=== PATIENT | female | born 1950 | race Caucasian/White ===

== ENCOUNTER → 2017-10-21 14:42 | Outpatient (CLI) | payer MEDICARE, SELFPAY ==
--- NOTE | 2017-10-21 14:47 | CT_ITS ---
CT IACs W/O Contrast INDICATION: RT EAR HEARING LOSS, UNABLE TO PUT TUBE IN EAR COMPARISON: None TECHNIQUE: High-resolution axial CT imaging of the internal auditory canals with coronal and sagittal reformatted images. FINDINGS: There is marked thickening of the tympanic membrane on the right, possibly with adjacent fluid. Trace fluid is seen in the middle ear cavity. The ossicles appear anatomically intact. There is fluid along the head of the malleolus . Inner ear structures and semicircular canals appear normal. Internal auditory canal is normal and symmetric to the contralateral side. The mastoid air cells are clear bilaterally. CT/Orb Sella Post Fossa Ear w/o IMPRESSION: Marked thickening of the right tympanic membrane with adjacent fluid, tracking along the head of the malleolus. Inner ear structures and internal auditory canals normal and symmetric. at 1733 Reported and signed by: Rajwinder Puga MD Electronically Signed: Rajwinder Puga MD at 17:31 EDT Tel , Service support ,
== END ==
PROVIDERS: Visit Provider Otolaryngology
DX: H74.11 Adhesive right middle ear disease (principal)
CPT/HCPCS: 70480

== ENCOUNTER → 2019-07-30 16:04 | Outpatient (CLI) | payer MEDICARE, SELFPAY ==
--- NOTE | 2019-07-30 16:07 | EKG12_ITS ---
Test Reason : ARRHYTHMIA Blood Pressure : / mmHG Vent. Rate : 049 BPM Atrial Rate : 049 BPM P-R Int : 114 ms QRS Dur : 086 ms QT Int : 444 ms P-R-T Axes : 023 -25 040 degrees QTc Int : 401 ms Marked sinus bradycardia Abnormal ECG Confirmed by DILAN PAREDES MD ([id number]), editor index ROHINI HEAD ([id number]) on 08/01/2019 9:55:45 AM Referred By: Katia Grider Confirmed By:DILAN PAREDES MD
== END ==
PROVIDERS: Referring Provider Nurse Practitioner Family; Visit Provider Nurse Practitioner Family
DX: I49.9 Cardiac arrhythmia, unspecified (principal)
CPT/HCPCS: 93005

== ENCOUNTER → 2020-03-04 09:22 | Outpatient (CLI) | payer MEDICARE, SELFPAY ==
[2019-09-04 14:29] VITALS: BMI 23.4
--- NOTE | 2020-03-04 09:24 | CDU_ITS ---
Reason For Study: Bruit Rt. Velocities/BP Lt. Velocities/BP Prox CCA 70.8/8.2 cm/sec. Prox CCA 59.6/11.3 cm/sec. Mid CCA 55.2/8.2 cm/sec. Mid CCA 62.9/12.4 cm/sec. Dist CCA 57.8/10.8 cm/sec. Dist CCA 70.6/14.6 cm/sec. Prox ICA 52/10.2 cm/sec. Prox ICA 50.9/10.2 cm/sec. Mid ICA 93.7/20.1 cm/sec. Mid ICA 79.4/21.2 cm/sec. Dist ICA 101.4/17.9 cm/sec. Dist ICA 102.8/20.4 cm/sec. Rt. ICA/CCA = 1.8. Lt. ICA/CCA = 1.6. Prox ECA 66.9/1.7 cm/sec. Prox ECA 61.8/3.6 cm/sec. Rt. Vert. 54.2/10.2 cm/sec. Lt. Vert. 58.6/9.1 cm/sec. Right Extracranial There is homogeneous, smooth atherosclerotic plaque noted in the right common carotid artery. There is heterogeneous, irregular atherosclerotic plaque noted in the right internal carotid artery. There is heterogeneous, irregular atherosclerotic plaque noted in the right external carotid artery. Antegrade flow is noted in the right vertebral artery. Left Extracranial There is intimal thickening but no significant atherosclerotic plaque noted in the left common carotid artery. There is heterogeneous, irregular atherosclerotic plaque noted in the left internal carotid artery. The atherosclerotic plaque causes acoustic shadowing. There is intimal thickening but no significant atherosclerotic plaque noted in the left external carotid artery. Antegrade flow is noted in the left vertebral artery. Procedure Carotid Duplex [id number]. Exam performed in department. Interpretation Summary Irregular calcific plague at the proximal right internal carotid with <50% stenosis <50% stenosis right external carotid Irregular calcific plague at the proximal left internal carotid with shadowing and <50% stenosis <50% stenosis left external carotid Patent, antegrade vertebrals bilaterally Ordering Physician: Triston Bryan Referring Physician: [facility] Performed By: May Morales RVT
--- NOTE | 2020-03-04 09:24 | ECHOD_ITS ---
Reason For Study: MURMUR Procedure This was a 2D Doppler, Color Flow transthoracic echocardiogram. Exam performed in department. Left Ventricle Normal LV size. Left ventricular systolic function is normal. The estimated ejection fraction is 60 %. Stage 2 diastolic dysfunction. No regional wall motion abnormalities noted. Right Ventricle Normal RV size. Normal systolic function. Atria The left atrium is mildly enlarged. Normal right atrium. Mitral Valve Normal mitral valve. Mild (1+) eccentric mitral valve insufficiency. Tricuspid Valve Normal tricuspid valve. Mild (1+) tricuspid valve insufficiency. Pulmonary artery systolic pressure is 25 mmHg. Aortic Valve Trisinus/trileaflet aortic valve. Moderate focal aortic valve calcification. Cannot completely exclude a bicuspid aortic valve. There appears to be a diastolic flow emanating from the base of the aorta into the left atrium. Mild-Moderate (1-2+) eccentric aortic valve insufficiency. Pulmonic Valve Normal pulmonic valve. Great Vessels Normal aortic root. The pulmonary artery is normal size. Normal inferior vena cava. Pericardium/Pleural No pericardial effusion. MMode/2D Measurements & Calculations LVIDd: 5.1 cm IVSd: 0.85 cm LVOT diam: 2.0 cm LVIDs: 3.4 cm LVPWd: 0.98 cm LVOT area: 3.1 cm2 RVDd: 3.2 cm FS: 33.4 % Ao root diam: 2.8 cm LAV(MOD-bp): 63.3 ml Aortic Valve Planimetry: 0.76 cm2 LAV(MOD-bp) Indexed: 40.4 ml/m2 LAV(MOD-sp2): 59.5 ml LAV(MOD-sp4): 67.2 ml LA dimension(2D): 4.0 cm LA A4 area: 21.1 cm2 RA A4 area: 13.3 cm2 Time Measurements MV dec time: 0.14 sec Doppler Measurements & Calculations MV E max chencho: 59.3 cm/sec Lat Peak E' Chencho: 7.9 cm/sec Med Peak E' Chencho: 4.3 cm/sec MV A max chencho: 56.7 cm/sec E/E' lat: 7.5 E/E' med: 13.9 MV E/A: 1.0 Ao V2 max: 424.7 cm/sec AI max chencho: 363.4 cm/sec LV V1 max: 83.6 cm/sec Ao max P.3 mmHg AI max P.9 mmHg LV V1 max P.8 mmHg Ao V2 mean: 323.1 cm/sec AI dec slope: 133.6 cm/sec2 LV V1 mean P.6 mmHg Ao mean P.2 mmHg AI P1/2t: 797.0 msec LV V1 mean: 61.0 cm/sec Ao V2 VTI: 123.0 cm LV V1 VTI: 23.8 cm TYLOR(I,D): 0.61 cm2 TYLOR(V,D): 0.62 cm2 SV(LVOT): 74.9 ml PA V2 max: 104.8 cm/sec PI end-d chencho: 60.9 cm/sec TR max chencho: 232.9 cm/sec TR max P.7 mmHg Interpretation Summary Normal LV size. Left ventricular systolic function is normal. The estimated ejection fraction is 60 %. Stage 2 diastolic dysfunction. Moderate focal aortic valve calcification. Mild-Moderate (1-2+) eccentric aortic valve insufficiency. Cannot completely exclude a bicuspid aortic valve. There appears to be a diastolic flow emanating from the base of the aorta into the left atrium. Pulmonary artery systolic pressure is 25 mmHg. Ordering Physician: Triston Bryan Referring Physician: ROBBIE SAHU [facility] Performed By: Ciara Stephens, SEEMA, RVT
== END ==
PROVIDERS: Referring Provider Internal Medicine Cardiovascular Disease; Visit Provider Internal Medicine Cardiovascular Disease
DX: R00.2 Palpitations (principal); R09.89 Other specified symptoms and signs involving the circulatory and respiratory systems; E03.9 Hypothyroidism, unspecified
CPT/HCPCS: 93306; 93880

== ENCOUNTER 2020-03-24 09:27 | Day surgery (SDC) | payer MEDICARE, SELFPAY ==
[2019-09-04 14:29] VITALS: BMI 23.4
[2020-03-19 15:58] VITALS: BMI 23.4
--- NOTE | 2020-03-19 17:00 | RAD_ITS ---
STUDY: X-RAY CHEST REASON FOR EXAM: Female, 69 years old. DYSPNEA AND PALPITATIONS TECHNIQUE: Single AP portable view of the chest. COMPARISON: None. FINDINGS: There is hyperinflation of the lungs consistent with chronic obstructive lung disease (COPD). Possible 7 mm nodule in the right lung base. Recommend further evaluation with CT scan. No infiltrates. No effusions. There is no demonstrated pleural abnormality. Normal size heart. Normal mediastinum and cheri. Normal visualized pulmonary arteries. Normal visualized aortic arch and descending thoracic aorta. Normal visualized thoracic spine. Normal visualized ribs, clavicles, and shoulders. There is no demonstrated abnormality of the visualized soft tissue structures of the upper abdomen. RAD/Chest PA and Lateral IMPRESSION: Question of a small nodule in the right lung base, CT scan recommended. There are findings consistent with COPD. Electronically Signed: Adrian Reyna MD at 20:01 EDT , Service support ,
[2020-03-19 17:19] LABS: Absolute Lymphocyte Count 1.47 X10^3/uL (0.83-4.51); Absolute Neutrophil Count 2.8 X10^3/uL (2.0-7.7); Basophil# 0.02 X10^3/uL; Basophil% 0.4 % (0-1); Eosinophil# 0.02 X10^3/uL; Eosinophils% 0.4 % (0-5); Hematocrit 39.6 % (37-47); Hemoglobin 12.8 g/dL (12.0-15.0); Lymphocyte # 1.47 X10^3/ul (4.0); Lymphocyte % 31.8 % (19-41); Mean Corp Hgb Conc 32.3 g/dL (32-36); Mean Corpuscular Hgb 32.4 pg (27.0-32.0); Mean Corpuscular Volume 100.3 fL (81-99); Mean Platelet Vol. 8.7 fl (6.2-12.0); Monocyte# 0.35 X10^3/uL; Monocyte% 7.6 % (0-10); NRBC Flagged by Analyzer 0 % (0-5); Neutrophil # 2.75 X10^3/uL (2.7-7.7); Neutrophil % 59.6 % (47-70); Platelet Count 186 K/mm3 (150-450); RBC Distribution Width CV 14.6 % (11.6-14.6); RBC Distribution Width SD 54.8 fl (35.1-43.9); Red Blood Count 3.95 M/mm3 (4.2-5.4); White Blood Count 4.6 K/mm3 (4.4-11.0)
[2020-03-19 17:35] LABS: Anion Gap 1 (5-15); BUN 18 mg/dL (7-18); BUN/Creat Ratio 12.2 RATIO (10-20); Calcium,Total 9.3 mg/dL (8.5-10.1); Chloride 108 mmol/L (98-107); Creatinine, Serum 1.47 mg/dL (0.55-1.02); EST Glomerular Filtration Rate 37 mL/min (>60); Est Glom Filt Rate - Afr Amer 45 mL/min (>60); Glucose 81 mg/dL (74-106); Potassium 4.7 mmol/L (3.5-5.1); Sodium Level 139 mmol/L (136-145)
[2020-03-21 08:24] VITALS: BMI 22.8
--- NOTE | 2020-03-24 08:10 | HP_ITS ---
HPI HPI History of Present Illness Surgical H&P: Yes Details: Mrs Egan is a very pleasant 69-year-old female with a history of hypertension, hypercholesterolemia, reflux disease, restrictive lung disease, multiple thyroid nodules, GERD, referred to our office for palpitations and positional lightheadedness. She was previously seen by the previous architect marine. An echocardiogram was ordered. This was evaluated by me. She has been having some episodes of dizziness when she gets up quickly from the seated or recumbent position. She denies any chest pain per se. Her physical exam demonstrates clear lung mancia regular rate and rhythm 3/6 systolic ejection murmur noted at the left sternal border radiating to the carotids. Her echocardiogram which was performed demonstrated preserved ejection fraction of 60% a trileaflet aortic valve with focal calcification 1-2+ eccentric aortic regurgitation and a peak gradient across the aortic valve of 72 mmHg and a mean gradient of 45 mmHg. There was a diastolic jet also noted which was eccentric possibly the AI. Intake Vital Signs 03/19/20 BMI 23.4 03/19/20 Height 5 ft 1 in 03/19/20 Weight: 121 lb 03/19/20 BMI 22.8 03/19/20 BP 132/61 H 03/19/20 Respiration 16 03/19/20 Pulse 68 03/19/20 Pulse Oximetry (%) 98 Intake Visit Reasons: severe /BAV (transfer from [facility]) Allergies No Known Allergies Allergy (Unverified 03/19/20 15:54) Medications aspirin 81 mg tablet,delayed release 81 mg PO DAILY 09/03/19 [History Confirmed 03/19/20] ergocalciferol (vitamin D2) 1,250 mcg (50,000 unit) capsule 1,250 mcg PO QWEEK 09/04/19 [History Confirmed 03/19/20] pravastatin 40 mg tablet 40 mg PO QHS 09/04/19 [History Confirmed 03/19/20] levothyroxine 75 mcg tablet 75 mcg PO DAILY #30 tab 03/19/20 [Rx Confirmed 03/19/20] lisinopril 20 mg tablet 20 mg PO DAILY #30 tab 03/19/20 [Rx Confirmed 03/19/20] PFSH Medical History Palpitations (Chronic) Bradycardia (Chronic) Bicuspid aortic valve (Chronic) Nonrheumatic aortic (valve) stenosis with insufficiency (Chronic) Essential (primary) hypertension (Chronic) Hyperlipidemia (Chronic) Decreased carotid pulse (Chronic) Hypothyroidism (Chronic) Surgical History History of D&C (Chronic) History of appendectomy (Chronic) History of benign breast biopsy (Chronic 2007) History of hysterectomy (Chronic 2000) History of wisdom tooth extraction (Chronic) Family History Mother CAD (coronary artery disease) Arthritis Father CAD (coronary artery disease) Hypertension CHF (congestive heart failure) Arthritis Social History (Updated 03/19/20 @ 16:[address] Jude Burnett MD) Smoking Status: Never smoker ROS Const Const: Negative for fatigue, weakness, headache(s), frequent falls, difficulty sleeping or excessive sweating Eyes Eyes: Negative for loss of peripheral vision, transient loss of vision, blurry vision, double vision or tunnel vision ENT ENT: Negative for headache(s), dizziness, Nosebleed/epistaxis or balance problems Cardio Chest Pain: No Palpitations: No Edema: None Muscle aches with walking: None Resp Respiratory: Negative for SOB with activity, SOB at rest, SOB orthopnea\SOB lying down, Cough or paroxysmal nocturnal dyspnea GI GI: Negative nausea, vomiting, heartburn or black,tarry stools : Negative for hematuria Musc Musc: Negative for muscle aches/ myalgia, muscle weakness, joint pain or balance problems Skin Skin: Negative non-healing lesions, rash or unusual bruising Neuro Neuro: Positive for lightheadedness (Has episodes of lightheadedness with exertion and bending over); negative for dizziness, near syncope, syncope, orthostatic symptoms, frequent falls, headache(s), weakness, blurry vision, double vision or lack of coordination Jaleel Hematologic/Lymphatic: Negative for easy bleeding or easy bruising Endo Endo: Negative for fatigue, excessive sweating or increased thirst/drinking Psych Psych: Negative for anxiety or depression Allergy Allergy/Immunology: Negative for hives, Negative for rash Cardiology Exam Const Appearance: cooperative, healthy appearing, no acute distress, well developed and well groomed Nutritional Appearance: average body habitus and well nourished Orientation: alert, awake and oriented x3 Head Head: normal to inspection, normocephalic and atraumatic Ears: hearing grossly normal bilaterally and external ears normal Nose: external nose normal, nares normal, nasal mucous membranes and turbinates normal, septum normal, no nasal discharge Face and Sinus: face symmetric Mouth: oral mucosae normal, tongue normal, oropharynx normal and moist mucous membranes Teeth and gingiva: dentition normal Throat: posterior oropharynx normal, tonsils normal and uvula midline Eyes General: appearance normal, both eyes and all related structures Eyelids: eyelids normal Conjunctivae: conjunctivae normal Pupils: PERRL, normal by confrontation and accommodation normal EOM: EOM intact bilaterally Neck Neck: normal visual inspection, trachea midline and no JVD JVD: +5 Carotids: normal carotid upstroke and bounding pulses Chest Chest inspection: normal inspection of the chest, symmetric chest movement and normal respiratory effort Auscultation: Bilateral: Clear to Auscultation Cardio Palpation: normal PMI Rate: regular rate Rhythm: regular rhythm Heart sounds: S1 normal, S2 normal and normal, physiologic split S2; negative rub, gallop or murmur Murmur: Grade 3/6, early systolic, LLSB and LVOT GI GI: normal to inspection, soft, no hepatosplenomegaly and bowel sounds present Neuro General: alert, awake, oriented x3, gait normal, moves all extremities and no focal sensory deficit Skin Skin: no rashes or lesions noted Extremities Pulses: Normal: Right Femoral Pulse, Left Femoral Pulse, Right Dorsalis Pedis Pulse, Left Dorsalis Pedis Pulse, Right Posterior Tibial Pulse, Left Posterior Tibial Pulse, Right Radial Pulse, Left Radial Pulse Lower Extremity Edema: None: Bilateral Musculoskel Musculoskeletal: No joint tenderness Psych Psychological: normal affect Assessment & Plan 1. Nonrheumatic aortic (valve) stenosis with insufficiency I35.2 Plan She appears to have significant aortic stenosis and mild to moderate aortic regurgitation. I would like to obtain a GIRMA to further clarify the hemodynamics at the base of the aorta. It is possibly an eccentric aortic regurgitant jet unable to be sure that there is nothing going into the left atrium. Due to the aortic valve area she should also be considered for a left heart catheterization. This will be with a view to considering a TAVR procedure. I discussed this with the patient and her they understand and agree to proceed. Orders Orders: 12 Lead EKG performed by [facility] Today Left Heart Cath 03/24/20 Basic Metabolic Profile (BMP) 03/14/20 CBC W/Diff, Automated 03/14/20 CORONAVIRUS 19, [facility] 03/14/20 Chest PA and Lateral 03/14/20 Echo Transesophageal (GIRMA) 03/24/20 2. Essential (primary) hypertension I10 Plan She does have a history of hypertension and will continue on the current lisinopril therapy. No other changes will be made. Orders Orders: 12 Lead EKG performed by [facility] Today Left Heart Cath 03/24/20 Basic Metabolic Profile (BMP) 03/14/20 CBC W/Diff, Automated 03/14/20 CORONAVIRUS 19, [facility] 03/14/20 Chest PA and Lateral 03/14/20 Echo Transesophageal (GIRMA) 03/24/20 Plan Detail Other Orders Orders: 12 Lead EKG performed by [facility] Today E78.5, Q23.1, R00.1, R00.2, R42 Left Heart Cath 03/24/20 E78.5, Q23.1, R00.1, R00.2, R93.1 Basic Metabolic Profile (BMP) 03/14/20 E78.5, Q23.1, R00.1, R00.2, R93.1 CBC W/Diff, Automated 03/14/20 E78.5, Q23.1, R00.1, R00.2, R93.1 CORONAVIRUS 19, [facility] 03/14/20 E78.5, Q23.1, R00.1, R00.2, R93.1 Chest PA and Lateral 03/14/20 E78.5, Q23.1, R00.1, R00.2, R93.1 Echo Transesophageal (GIRMA) 03/24/20 E78.5, Q23.1, R00.1, R00.2 Other Medications New: lisinopril 20 mg PO DAILY 30 tabs 11RF levothyroxine 75 mcg PO DAILY 30 tabs 11RF 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
--- NOTE | 2020-03-24 09:31 | ECHOTEE_ITS ---
Version 2 Reason For Study: Aortic Stenosis Medication GIRMA probe 6VT-D (SN [id number]) passed with minimal difficulty. No complications were noted. Cetacaine Topical [place] given X3 orally. Versed 3 mg given slow IVP. Fentanyl 50 mcg given slow IVP. Performed a rapid injection of agitated mix of 9 cc saline and 1cc air to assess for atrial septal defect. Left Ventricle Normal LV size. Left ventricular systolic function is normal. The estimated ejection fraction is 60 %. No regional wall motion abnormalities noted. Right Ventricle Normal RV size. Normal systolic function. Atria Bubble contrast study negative for right to left interatrial shunt. The left atrium is mildly enlarged. Normal right atrium. Aortic Valve Trisinus/trileaflet aortic valve. Moderate focal aortic valve calcification. Moderately severe. Mild-Moderate (1-2+) aortic valve insufficiency. Pulmonic Valve Normal pulmonic valve. Mild (1+) pulmonic valve insufficiency. Vessels Normal aortic root. The pulmonary artery is normal size. Pericardium No pericardial effusion. Interpretation Summary Normal LV size. Left ventricular systolic function is normal. The estimated ejection fraction is 60 %. Mild (1+) pulmonic valve insufficiency. Moderate focal aortic valve calcification. Mild-Moderate (1-2+) aortic valve insufficiency. Moderately severe aortic stenosis Ordering Physician: Jude Burnett Referring Physician: Jude Burnett Performed By: Francheska Calderón RDCS
--- NOTE | 2020-03-24 12:33 | CL.D_ITS ---
Patient Name: NICO HARLEY Study Date: 03/24/2020 Performing: Jude Burnett MD Ht: 61.02 inches 155 cm : 1950 Wt: 121.25 lbs 55 kg Age: 69 Gender: female BSA: 1.53 PROCEDURE(S) PERFORMED [id number] ROOT ANGIO WITH HEART CATH CLINICAL PROFILE AND INDICATIONS Indications: Valvular Disease Heart Failure: None Stress/Imaging Stress/Image Study Performed: No CAD Presentations: Symptom unlikely to be ischemic. CONCLUSIONS No significant CAD. RECOMMENDATIONS Moderately severe aortic stenosis: Mild to moderate aortic regurgitation: Aortic valve calcification: Preserved left ventricular ejection fraction. Would recommend an evaluation for a TAVR approach. DESCRIPTION OF PROCEDURE The patient arrived to the procedure lab. The risks and benefits of the procedure as well as a full d escription of our services here and current unavailability of surgical backup were fully explained to the patient and/or their significant other prior to the catheterization. The Timeout was completed, verifying the correct patient and procedure. The patient's procedural site was prepped and draped in the usual fashion. Local anesthetic was given subcutaneously to right radial region with Lidocaine 2% . Using a modified Seldinger technique, arterial access was obtained via the right radial artery, a 6 Fr sheath was inserted. Left Coronary Artery selective angiography was performed in multiple views u sing a 5 Fr. 4.0 [place] catheter. Right Coronary Artery selective angiography was then performed in mu ltiple views using a 5 Fr. 4.0 [place] catheter. Ascending (root) aorta selective angiography was then performed in single view. Ascending (root) aorta selective angiography was then performed in single view.The arterial sheath was pulled and a TR Band was applied for hemostasis 12cc air inser nhi CORONARY ANGIOGRAPHY DOMINANCE: Right Dominant LEFT HEART ASSESSMENT Left Ventricular Ejection Fraction: by Echo 60 % Normal LV wall motion Normal Left Ventricular systolic function LEFT MAIN: Angiographically normal LEFT ANTERIOR DESCENDING ARTERY: Angiographically normal CIRCUMFLEX ARTERY: Angiographically normal RIGHT CORONARY ARTERY: Angiographically normal VALVE FINDINGS: Aortic Valve Stenosis - severe Aortic Valve Insufficiency: Grade 2 AORTIC ROOT: Angiographically normal COMPLICATIONS No Complications PROCEDURE MEDICATIONS Versed 1 mg IV Oxygen: 2 L/min via nasal cannula Heparin diluted in 23cc Heparinized saline. Patient given 10cc IA of this solution. 03/24/2020 12:04: 35 IV Bolus: .9 NaCl 350 ml total 03/24/2020 12:17:57 SUMMARY OF HEMODYNAMIC DATA Time AIR REST ECG 09:59:33 AO 140/76 (103) SA 12:07:44 Signed By Jude Burnett MD On 03/24/2020 12:32:52 Jude Burnett MD
== END 2020-03-24 14:00 | disposition home or self-care (01) ==
PROVIDERS: Referring Provider Internal Medicine Cardiovascular Disease; Visit Provider Internal Medicine Cardiovascular Disease
DX: I35.2 Nonrheumatic aortic (valve) stenosis with insufficiency (principal); I10 Essential (primary) hypertension; E78.00 Pure hypercholesterolemia, unspecified; Z79.82 Long term (current) use of aspirin; R06.00 Dyspnea, unspecified; J44.9 Chronic obstructive pulmonary disease, unspecified; I37.1 Nonrheumatic pulmonary valve insufficiency; R93.1 Abnormal findings on diagnostic imaging of heart and coronary circulation
CPT/HCPCS: 36415; 71046; 80048; 85025; 87635; 93312; 93320; 93325; 93458; 93567; 99152; C9803; J7040; Q9967; A4216; C1769; C1894; U0003

== ENCOUNTER → 2020-06-24 15:28 | Outpatient (CLI) | payer MEDICARE, SELFPAY ==
[2020-03-21 08:24] VITALS: BMI 22.8
[2020-06-24 17:41] LABS: Anion Gap 5 (5-15); BUN 13 mg/dL (7-18); BUN/Creat Ratio 14.3 RATIO (10-20); Calcium,Total 8.9 mg/dL (8.5-10.1); Chloride 108 mmol/L (98-107); Creatinine, Serum 0.91 mg/dL (0.55-1.02); EST Glomerular Filtration Rate 65 mL/min (>60); Est Glom Filt Rate - Afr Amer 78 mL/min (>60); Glucose 75 mg/dL (74-106); Potassium 4.6 mmol/L (3.5-5.1); Sodium Level 143 mmol/L (136-145)
== END ==
DX: I35.0 Nonrheumatic aortic (valve) stenosis (principal)
CPT/HCPCS: 36415; 80048

== ENCOUNTER → 2020-12-25 15:50 | Outpatient (CLI) | payer MEDICARE, SELFPAY ==
[2020-12-25 15:02] VITALS: BMI 20.5
[2020-12-25 17:48] LABS: Anion Gap 7 (5-15); BUN 12 mg/dL (7-18); BUN/Creat Ratio 12.2 RATIO (10-20); Calcium,Total 8.6 mg/dL (8.5-10.1); Chloride 105 mmol/L (98-107); Creatinine, Serum 0.98 mg/dL (0.55-1.02); EST Glomerular Filtration Rate 59 mL/min (>60); Est Glom Filt Rate - Afr Amer 72 mL/min (>60); Glucose 85 mg/dL (74-106); Potassium 4.2 mmol/L (3.5-5.1); Sodium Level 141 mmol/L (136-145); Thyroid Stim Hormone (TSH) 1.43 uIU/mL (0.358-3.74)
== END ==
PROVIDERS: Referring Provider Internal Medicine Cardiovascular Disease; Visit Provider Internal Medicine Cardiovascular Disease
DX: R00.2 Palpitations (principal); Z95.2 Presence of prosthetic heart valve
CPT/HCPCS: 36415; 80048; 84443

== ENCOUNTER → 2021-04-11 09:17 | Outpatient (CLI) | payer MEDICARE, SELFPAY ==
[2021-04-11 09:56] LABS: Absolute Lymphocyte Count 0.87 X10^3/uL (0.83-4.51); Absolute Neutrophil Count 1.8 X10^3/uL (2.0-7.7); Basophil# 0.01 X10^3/uL; Basophil% 0.3 % (0-1); Eosinophil# 0.03 X10^3/uL; Hematocrit 40.8 % (37-47); Hemoglobin 12.8 g/dL (12.0-15.0); Lymphocyte # 0.87 X10^3/ul (0.83-4.51); Lymphocyte % 29.8 % (19-41); Mean Corp Hgb Conc 31.4 g/dL (32-36); Mean Corpuscular Hgb 31.2 pg (27.0-32.0); Mean Corpuscular Volume 99.5 fL (81-99); Mean Platelet Vol. 8.5 fl (6.2-12.0); Monocyte# 0.24 X10^3/uL; Monocyte% 8.2 % (0-10); NRBC Flagged by Analyzer 0 % (0-5); Neutrophil # 1.76 X10^3/uL (2.7-7.7); Neutrophil % 60.4 % (47-70); Platelet Count 181 K/mm3 (150-450); RBC Distribution Width CV 15.8 % (11.6-14.6); RBC Distribution Width SD 58.1 fl (35.1-43.9); White Blood Count 2.9 K/mm3 (4.4-11.0)
[2021-04-11 10:10] LABS: Hemoglobin A1c 5.2 % (3.8-5.6)
[2021-04-11 10:38] LABS: ALB/GLOB Ratio 0.8 RATIO (0.9-2.4); AST(SGOT) 19 U/L (15-37); Alanine Aminotransfer ALT/SGPT 16 U/L (13-56); Albumin, Serum 3.2 g/dL (3.2-5.0); Alkaline Phosphatase 81 U/L (45-117); Anion Gap 5 (5-15); BUN 16 mg/dL (7-18); BUN/Creat Ratio 15.8 RATIO (10-20); Calcium,Total 8.9 mg/dL (8.5-10.1); Chloride 106 mmol/L (98-107); Cholesterol 242 mg/dL (200); Creatinine, Serum 1.01 mg/dL (0.55-1.02); EST Glomerular Filtration Rate 57 mL/min (>60); Est Glom Filt Rate - Afr Amer 69 mL/min (>60); Globulin 4.1 g/dL (2.2-4.2); Glucose 91 mg/dL (74-106); High Density Lipoprotein 105 mg/dL; Potassium 4.5 mmol/L (3.5-5.1); Protein, Total 7.3 g/dL (6.4-8.2); Sodium Level 140 mmol/L (136-145); Thyroid Stim Hormone (TSH) 2.51 uIU/mL (0.358-3.74); Triglycerides 64 mg/dL; Very Low Density Lipoprotein 13 mg/dL (5-40)
[2021-04-13 13:19] LABS: Vitamin D 1,25-Dihydroxy 38.5 pg/mL (19.9-79.3)
== END ==
PROVIDERS: Referring Provider Nurse Practitioner Adult Health; Visit Provider Nurse Practitioner Adult Health
DX: I10 Essential (primary) hypertension (principal); E55.9 Vitamin D deficiency, unspecified; Z83.3 Family history of diabetes mellitus; E78.5 Hyperlipidemia, unspecified
CPT/HCPCS: 36415; 80053; 80061; 82652; 83036; 84443; 85025

== ENCOUNTER → 2021-12-01 | Outpatient (CLI) | payer MEDICARE, SELFPAY ==
--- NOTE | 2021-12-01 11:48 | BI_ITS ---
MAMMOGRAPHY - BILATERAL SCREENING REASON FOR EXAM: Female, 71 years old. Routine annual screening examination. PERTINENT HISTORY: Non-contributory. TECHNIQUE: Digital bilateral breast cely (3D mammographic acquisition) in the CC and MLO projections. 2-D mediolateral oblique (MLO) and craniocaudad (CC) views of both breasts were obtained. CAD: Full Field Digital Mammography with Computer Added Detection was performed. COMPARISON: Comparison is made with prior study dated 05/18/2017 and 09/05/2012. FINDINGS: Breast Composition: The breasts are heterogeneously dense, which may obscure small masses. There are no dominant masses or suspicious calcifications. No other significant abnormalities are identified. There has been no significant change since the prior study. BI/SCRN MAMM (CAD)W/CELY BILAT IMPRESSION: Stable bilateral screening mammogram. Yearly follow-up mammogram recommended. (A) ASSESSMENT CATEGORY: BIRADS Category 1: Negative. A letter regarding these results will be sent to the patient by the facility within 30 days. Approximately 10% of breast cancers are not detected by mammography. A normal mammogram should not delay biopsy of a clinically suspicious abnormality. [id number] Electronically Signed: Pedro Pacheco MD at 12:39 EDT ,
== END | disposition home or self-care (01) ==
LOC: OPBI 11:47
PROVIDERS: Referring Provider Internal Medicine Hematology & Oncology; Visit Provider Internal Medicine Hematology & Oncology
DX: Z12.31 Encounter for screening mammogram for malignant neoplasm of breast (principal)
CPT/HCPCS: 77063; 77067

== ENCOUNTER → 2022-03-15 | Outpatient (CLI) | payer MEDICARE, SELFPAY ==
[2022-03-15 15:24] LABS: Absolute Lymphocyte Count 1.45 X10^3/uL (0.83-4.51); Absolute Neutrophil Count 2.4 X10^3/uL (2.0-7.7); Basophil# 0.02 X10^3/uL; Basophil% 0.5 % (0-1); Eosinophil# 0.02 X10^3/uL; Eosinophils% 0.5 % (0-5); Hematocrit 38.3 % (37-47); Hemoglobin 12.8 g/dL (12.0-15.0); Lymphocyte # 1.45 X10^3/ul (0.83-4.51); Lymphocyte % 34.3 % (19-41); Mean Corp Hgb Conc 33.4 g/dL (32-36); Mean Corpuscular Hgb 32.7 pg (27.0-32.0); Mean Platelet Vol. 8.8 fl (6.2-12.0); Monocyte# 0.35 X10^3/uL; Monocyte% 8.3 % (0-10); NRBC Flagged by Analyzer 0 % (0-5); Neutrophil # 2.39 X10^3/uL (2.7-7.7); Neutrophil % 56.4 % (47-70); Platelet Count 168 K/mm3 (150-450); RBC Distribution Width CV 14.8 % (11.6-14.6); RBC Distribution Width SD 53.3 fl (35.1-43.9); Red Blood Count 3.91 M/mm3 (4.2-5.4); White Blood Count 4.2 K/mm3 (4.4-11.0)
[2022-03-15 15:52] LABS: Microalbumin,Random Urine 33.7 mg/L (NO RANGE EST.); Microalbumin:Creatinine Ratio 12.4 mg/g CRE (<30 mg/g CRE)
[2022-03-15 16:25] LABS: ALB/GLOB Ratio 0.8 RATIO (0.9-2.4); AST(SGOT) 22 U/L (15-37); Alanine Aminotransfer ALT/SGPT 18 U/L (13-56); Albumin, Serum 3.2 g/dL (3.2-5.0); Alkaline Phosphatase 80 U/L (45-117); Anion Gap 5 (5-15); BUN 17 mg/dL (7-18); Calcium,Total 8.7 mg/dL (8.5-10.1); Chloride 108 mmol/L (98-107); Creatinine, Serum 1.54 mg/dL (0.55-1.02); EST Glomerular Filtration Rate 35 mL/min (>60); Est Glom Filt Rate - Afr Amer 42 mL/min (>60); Globulin 4.2 g/dL (2.2-4.2); Glucose 83 mg/dL (74-106); Potassium 4.6 mmol/L (3.5-5.1); Protein, Total 7.4 g/dL (6.4-8.2); Sodium Level 142 mmol/L (136-145); T4 Free Direct 1.13 ng/dL (0.76-1.46); Thyroid Stim Hormone (TSH) 2.62 uIU/mL (0.358-3.74)
== END | disposition home or self-care (01) ==
PROVIDERS: Visit Provider Family Medicine
DX: I10 Essential (primary) hypertension (principal); E03.9 Hypothyroidism, unspecified; D72.819 Decreased white blood cell count, unspecified
CPT/HCPCS: 36415; 80053; 82043; 82570; 84439; 84443; 85025

== ENCOUNTER → 2022-12-23 | Outpatient (CLI) | payer MEDICARE, SELFPAY ==
--- NOTE | 2022-12-23 12:16 | BI_ITS ---
MAMMOGRAPHY - BILATERAL SCREENING REASON FOR EXAM: Female, 72 years old. Routine annual screening examination. PERTINENT HISTORY: Non-contributory. TECHNIQUE: Digital bilateral breast cely (3D mammographic acquisition) in the CC and MLO projections. 2-D mediolateral oblique (MLO) and craniocaudad (CC) views of both breasts were obtained. CAD: Full Field Digital Mammography with Computer Added Detection was performed. COMPARISON: Comparison is made with prior study dated December 01, 2021 and May 18, 2017. FINDINGS: Breast Composition: The breasts are extremely dense, which lowers the sensitivity of mammography. There are no dominant masses or suspicious calcifications. No other significant abnormalities are identified. There has been no significant change since the prior study. BI/SCRN MAMM (CAD)W/CELY BILAT IMPRESSION: Stable bilateral screening mammogram. Yearly follow-up mammogram recommended. (A) ASSESSMENT CATEGORY: BIRADS Category 1: Negative. A letter regarding these results will be sent to the patient by the facility within 30 days. Approximately 10% of breast cancers are not detected by mammography. A normal mammogram should not delay biopsy of a clinically suspicious abnormality. [id number] Electronically Signed: Pedro Pacheco MD at 12:59 EDT ,
== END | disposition home or self-care (01) ==
LOC: OPBI 12:13
PROVIDERS: Referring Provider Nurse Practitioner Women's Health; Visit Provider Nurse Practitioner Women's Health
DX: Z12.31 Encounter for screening mammogram for malignant neoplasm of breast (principal)
CPT/HCPCS: 77063; 77067

== ENCOUNTER → 2023-04-01 | Outpatient (CLI) | payer MEDICARE, SELFPAY ==
[2023-04-01 09:24] LABS: Absolute Lymphocyte Count 1.18 X10^3/uL (0.83-4.51); Basophil# 0.02 X10^3/uL; Basophil% 0.6 % (0-1); Eosinophil# 0.06 X10^3/uL; Eosinophils% 1.7 % (0-5); Hematocrit 39.2 % (37-47); Hemoglobin 12.4 g/dL (12.0-15.0); Lymphocyte # 1.18 X10^3/ul (0.83-4.51); Lymphocyte % 32.6 % (19-41); Mean Corp Hgb Conc 31.6 g/dL (32-36); Mean Corpuscular Hgb 31.4 pg (27.0-32.0); Mean Corpuscular Volume 99.2 fL (81-99); Mean Platelet Vol. 8.8 fl (6.2-12.0); Monocyte# 0.32 X10^3/uL; Monocyte% 8.8 % (0-10); NRBC Flagged by Analyzer 0 % (0-5); Neutrophil # 2.03 X10^3/uL (2.7-7.7); Platelet Count 132 K/mm3 (150-450); RBC Distribution Width CV 14.4 % (11.6-14.6); RBC Distribution Width SD 52.6 fl (35.1-43.9); Red Blood Count 3.95 M/mm3 (4.2-5.4); White Blood Count 3.6 K/mm3 (4.4-11.0)
[2023-04-01 09:59] LABS: ALB/GLOB Ratio 0.8 RATIO (0.9-2.4); AST(SGOT) 15 U/L (15-37); Alanine Aminotransfer ALT/SGPT 16 U/L (13-56); Albumin, Serum 3.1 g/dL (3.2-5.0); Alkaline Phosphatase 82 U/L (45-117); Anion Gap 2 (5-15); BUN 14 mg/dL (7-18); BUN/Creat Ratio 12.7 RATIO (10-20); Calcium,Total 8.8 mg/dL (8.5-10.1); Chloride 108 mmol/L (98-107); Cholesterol 238 mg/dL (200); EST Glomerular Filtration Rate 52 mL/min (>60); Est Glom Filt Rate - Afr Amer 62 mL/min (>60); Globulin 3.8 g/dL (2.2-4.2); Glucose 88 mg/dL (74-106); High Density Lipoprotein 101 mg/dL; Potassium 4.1 mmol/L (3.5-5.1); Protein, Total 6.9 g/dL (6.4-8.2); Sodium Level 140 mmol/L (136-145); T4 Free Direct 1.04 ng/dL (0.76-1.46); Triglycerides 80 mg/dL; Very Low Density Lipoprotein 16 mg/dL (5-40)
== END | disposition home or self-care (01) ==
PROVIDERS: Referring Provider Nurse Practitioner Family; Visit Provider Nurse Practitioner Family
DX: D72.819 Decreased white blood cell count, unspecified (principal); E03.9 Hypothyroidism, unspecified; I10 Essential (primary) hypertension; E78.5 Hyperlipidemia, unspecified
CPT/HCPCS: 36415; 80053; 80061; 84439; 84443; 85025

== ENCOUNTER → 2023-11-16 | Outpatient (CLI) | payer MEDICARE, SELFPAY ==
[2023-11-16 09:46] LABS: Absolute Lymphocyte Count 0.96 X10^3/uL (0.83-4.51); Absolute Neutrophil Count 1.8 X10^3/uL (2.0-7.7); Basophil# 0.02 X10^3/uL; Basophil% 0.6 % (0-1); Eosinophil# 0.06 X10^3/uL; Eosinophils% 1.9 % (0-5); Hematocrit 39.9 % (37-47); Hemoglobin 12.8 g/dL (12.0-15.0); Lymphocyte # 0.96 X10^3/ul (0.83-4.51); Lymphocyte % 29.7 % (19-41); Mean Corp Hgb Conc 32.1 g/dL (32-36); Mean Corpuscular Hgb 31.5 pg (27.0-32.0); Mean Corpuscular Volume 98.3 fL (81-99); Mean Platelet Vol. 8.5 fl (6.2-12.0); Monocyte# 0.35 X10^3/uL; Monocyte% 10.8 % (0-10); NRBC Flagged by Analyzer 0 % (0-5); Neutrophil # 1.83 X10^3/uL (2.7-7.7); Neutrophil % 56.7 % (47-70); Platelet Count 134 K/mm3 (150-450); RBC Distribution Width CV 14.8 % (11.6-14.6); RBC Distribution Width SD 53.7 fl (35.1-43.9); Red Blood Count 4.06 M/mm3 (4.2-5.4); White Blood Count 3.2 K/mm3 (4.4-11.0)
[2023-11-16 10:24] LABS: ALB/GLOB Ratio 0.8 RATIO (0.9-2.4); AST(SGOT) 17 U/L (15-37); Alanine Aminotransfer ALT/SGPT 14 U/L (13-56); Albumin, Serum 3.2 g/dL (3.2-5.0); Alkaline Phosphatase 76 U/L (45-117); Anion Gap 4 (5-15); BUN 16 mg/dL (7-18); BUN/Creat Ratio 13.3 RATIO (10-20); Calcium,Total 8.9 mg/dL (8.5-10.1); Chloride 108 mmol/L (98-107); Cholesterol 235 mg/dL (200); EST Glomerular Filtration Rate 47 mL/min (>60); Est Glom Filt Rate - Afr Amer 56 mL/min (>60); Globulin 3.9 g/dL (2.2-4.2); Glucose 89 mg/dL (74-106); High Density Lipoprotein 99 mg/dL; Potassium 4.1 mmol/L (3.5-5.1); Protein, Total 7.1 g/dL (6.4-8.2); Sodium Level 139 mmol/L (136-145); T4 Free Direct 1.15 ng/dL (0.76-1.46); Thyroid Stim Hormone (TSH) 0.62 uIU/mL (0.358-3.74); Triglycerides 66 mg/dL; Very Low Density Lipoprotein 13 mg/dL (5-40)
[2023-11-16 17:18] LABS: Vitamin B12 > 2000 pg/mL (211-911)
== END | disposition home or self-care (01) ==
LOC: PAVLAB 09:19
PROVIDERS: Referring Provider Nurse Practitioner Family; Visit Provider Nurse Practitioner Family
DX: D72.819 Decreased white blood cell count, unspecified (principal); E03.9 Hypothyroidism, unspecified; I10 Essential (primary) hypertension; E78.5 Hyperlipidemia, unspecified; E56.9 Vitamin deficiency, unspecified
CPT/HCPCS: 36415; 80053; 80061; 82607; 84439; 84443; 85025

== ENCOUNTER → 2024-01-10 | Outpatient (CLI) | payer MEDICARE, SELFPAY | END | disposition home or self-care (01) | PROVIDERS: Referring Provider Physician Assistant Medical; Visit Provider Physician Assistant Medical | DX: R00.1 Bradycardia, unspecified (principal) | CPT/HCPCS: 93225; 93226 ==

== ENCOUNTER → 2024-01-13 | Outpatient (CLI) | payer MEDICARE, SELFPAY ==
--- NOTE | 2024-01-13 13:07 | ECHOD_ITS ---
Reason For Study: PROSTHETIC HEART VALVE Procedure This was a 2D Doppler, Color Flow transthoracic echocardiogram. Exam performed in department. Left Ventricle Normal LV size. Left ventricular systolic function is normal. The left ventricular ejection fraction is 55 %. Stage 1 diastolic dysfunction. No regional wall motion abnormalities noted. Right Ventricle Normal RV size. Normal systolic function. Atria Normal left atrium. Normal right atrium. Mitral Valve Bileaflet diffuse mitral valve thickening. Mild (1+) eccentric mitral valve insufficiency. Tricuspid Valve Normal tricuspid valve. Mild (1+) tricuspid valve insufficiency. Pulmonary artery systolic pressure is 35 mmHg. Aortic Valve Peak aortic valve gradient 25 mmHg. Mean aortic valve gradient 14 mmHg. Bioprosthetic aortic valve. Pulmonic Valve Normal pulmonic valve. Great Vessels Normal aortic root. The pulmonary artery is normal size. Normal inferior vena cava. Pericardium/Pleural No pericardial effusion. MMode/2D Measurements & Calculations LVIDd: 4.3 cm IVSd: 1.2 cm LVOT diam: 1.9 cm LVIDs: 3.0 cm LVPWd: 0.96 cm LVOT area: 2.9 cm2 RVDd: 3.6 cm FS: 31.2 % Ao root diam: 3.3 cm LAV(MOD-bp): 48.1 ml LVAd ap4: 22.0 cm2 LAV(MOD-bp) Indexed: 30.8 ml/m2 LVLd ap4: 6.9 cm LAV(MOD-sp2): 52.1 ml EDV(MOD-sp4): 61.4 ml LAV(MOD-sp4): 43.8 ml EDV(sp4-el): 59.7 ml LVAs ap4: 13.5 cm2 LVLs ap4: 5.5 cm ESV(MOD-sp4): 31.0 ml ESV(sp4-el): 27.9 ml EF(MOD-sp4): 49.5 % EF(sp4-el): 53.3 % SV(MOD-sp4): 30.4 ml SV(sp4-el): 31.8 ml LA A4 area: 16.5 cm2 LA dimension(2D): 4.1 cm RA A4 area: 16.7 cm2 TAPSE: 1.6 cm Time Measurements MV dec time: 0.20 sec Doppler Measurements & Calculations MV E max chencho: 55.8 cm/sec Lat Peak E' Chencho: 9.8 cm/sec Med Peak E' Chencho: 3.6 cm/sec MV A max chencho: 80.7 cm/sec E/E' lat: 5.7 E/E' med: 15.6 MV E/A: 0.69 MV V2 max: 80.3 cm/sec Ao V2 max: 248.1 cm/sec MV max P.6 mmHg MV dec slope: 272.5 cm/sec2 Ao max P.6 mmHg MV V2 mean: 30.7 cm/sec Ao V2 mean: 176.6 cm/sec MV mean P.52 mmHg Ao mean P.2 mmHg MV V2 VTI: 32.8 cm Ao V2 VTI: 65.5 cm AV (velocity ratio): 0.64 MVA(VTI): 3.8 cm2 TYLOR(I,D): 1.9 cm2 TYLOR(V,D): 2.0 cm2 LV V1 max: 166.8 cm/sec SV(LVOT): 123.3 ml PA V2 max: 121.4 cm/sec LV V1 max P.1 mmHg PA V2 mean: 83.4 cm/sec LV V1 mean P.0 mmHg LV V1 mean: 123.1 cm/sec LV V1 VTI: 42.2 cm PI end-d chencho: 73.9 cm/sec TR max chencho: 281.0 cm/sec TR max P.6 mmHg ECHO/Echo Complete Interpretation Summary Normal LV size. Left ventricular systolic function is normal. The left ventricular ejection fraction is 55 %. Stage 1 diastolic dysfunction. Bioprosthetic aortic valve. Mean aortic valve gradient 14 mmHg. Ordering Physician: Kya Zapata Referring Physician: Kya Zapata Performed By: Heike Brito RCS
== END | disposition home or self-care (01) ==
LOC: CVS 13:07
PROVIDERS: Referring Provider Physician Assistant Medical; Visit Provider Physician Assistant Medical
DX: Z95.2 Presence of prosthetic heart valve (principal)
CPT/HCPCS: 93306

== ENCOUNTER → 2024-10-30 | Outpatient (CLI) | payer MEDICARE, SELFPAY ==
[2024-10-30 12:14] LABS: Bacteria 0 SEEN /hpf (None Seen)
[2024-10-30 13:04] LABS: Absolute Lymphocyte Count 1.24 X10^3/uL (0.83-4.51); Absolute Neutrophil Count 2.5 X10^3/uL (2.0-7.7); Basophil# 0.02 X10^3/uL; Basophil% 0.5 % (0-1); Eosinophil# 0.04 X10^3/uL; Hematocrit 39.8 % (37-47); Hemoglobin 12.8 g/dL (12.0-15.0); Lymphocyte # 1.24 X10^3/ul (0.83-4.51); Lymphocyte % 30.8 % (19-41); Mean Corp Hgb Conc 32.2 g/dL (32-36); Mean Corpuscular Volume 99.5 fL (81-99); Mean Platelet Vol. 8.7 fl (6.2-12.0); Monocyte# 0.26 X10^3/uL; Monocyte% 6.5 % (0-10); NRBC Flagged by Analyzer 0 % (0-5); Neutrophil # 2.46 X10^3/uL (2.7-7.7); Platelet Count 152 K/mm3 (150-450); RBC Distribution Width CV 14.3 % (11.6-14.6); RBC Distribution Width SD 52.4 fl (35.1-43.9)
[2024-10-30 13:06] LABS: Color, Urine Yellow (Yellow); Glucose, Dipstick Normal (Normal); Ketone-Dipstick 5 mg/dl (Negative); Leukocyte Esterase-Dipstick 100 /ul (Negative); Nitrite-Dipstick Negative (Negative); Occult Blood-Urine 25 /ul (Negative); Protein-Dipstick 30 mg/dl (Negative); Specific Gravity, Urine 1.025 (1.002-1.030); Urine Bilirubin Dipstick Negative (Negative); Urine Clarity Clear (Clear); Urine Urobilinogen 1 mg/dl (Normal)
[2024-10-30 13:12] LABS: Red Blood Cells-Urine 0-5 SEEN /hpf (0-5); Squamous Epithelial Cells - UA 0-5 SEEN /hpf (5-10); White Blood Cells 5-10 SEEN /hpf (0-5)
[2024-10-30 13:14] LABS: Hyaline Cast 5-10 SEEN /lpf (0-5); Mucous, Urine 1+ /hpf (<or=2+)
[2024-10-30 15:16] LABS: ALB/GLOB Ratio 1.1 RATIO (0.9-2.4); AST(SGOT) 24 U/L (<=31); Alanine Aminotransfer ALT/SGPT 11 U/L (<=34); Albumin, Serum 3.9 g/dL (3.4-4.8); Alkaline Phosphatase 90 U/L (35-104); Anion Gap 9 (5-15); BUN 14 mg/dL (4-19); BUN/Creat Ratio 11.4 RATIO (10-20); Calcium,Total 9.2 mg/dL (7.6-11.0); Carbon Dioxide 24.5 mmol/L (21.0-32.0); Chloride 107 mmol/L (98-108); Cholesterol 258 mg/dL (<=200); Creatinine, Serum 1.23 mg/dL (0.70-1.20); EST Glomerular Filtration Rate 46 (>60); Globulin 3.4 g/dL (2.2-4.2); Glucose 95 mg/dL (70-99); High Density Lipoprotein 97 mg/dL; Low Density Lipoprotein Calc. 142 mg/dL; Potassium 4.2 mmol/L (3.3-5.1); Protein, Total 7.3 g/dL (5.9-8.4); Sodium Level 140 mmol/L (133-145); Total Bilirubin 0.43 mg/dL (0.00-1.30); Triglycerides 100 mg/dL; Very Low Density Lipoprotein 20 mg/dL (5-40); cholesterol:hdl ratio screen 2.67
== END | disposition home or self-care (01) ==
LOC: VSLAB 12:13
PROVIDERS: PCP Nurse Practitioner Family; Visit Provider Nurse Practitioner Family
DX: R35.1 Nocturia (principal); E03.9 Hypothyroidism, unspecified; I10 Essential (primary) hypertension; E78.5 Hyperlipidemia, unspecified
CPT/HCPCS: 36415; 80053; 80061; 81001; 84443; 85025; 87086; 87088

== ENCOUNTER → 2024-11-16 | Outpatient (CLI) | payer MEDICARE, SELFPAY ==
[2024-11-16 22:09] LABS: Color, Urine Yellow (Yellow); Glucose, Dipstick Normal (Normal); Ketone-Dipstick Negative (Negative); Leukocyte Esterase-Dipstick 500 /ul (Negative); Nitrite-Dipstick Negative (Negative); Occult Blood-Urine 10 /ul (Negative); Protein-Dipstick 30 mg/dl (Negative); Specific Gravity, Urine 1.025 (1.002-1.030); Urine Clarity Sl. Cloudy (Clear); Urine Urobilinogen 1 mg/dl (Normal)
[2024-11-16 22:14] LABS: Urine Bilirubin Dipstick 1 mg/dL (Negative)
== END | disposition home or self-care (01) ==
LOC: LABSPEC 20:47
PROVIDERS: PCP Nurse Practitioner Family; Referring Provider Nurse Practitioner Family; Visit Provider Nurse Practitioner Family
DX: R31.9 Hematuria, unspecified (principal)
CPT/HCPCS: 81002